=== PATIENT | female | born 1985 ===

== ENCOUNTER 2017-04-23 13:04 | Emergency (ER) | payer MEDICAID ==
[2017-04-23 13:04] VITALS: BMI 47.3
[2017-04-23 13:33] VITALS: BP 151/89; PULSE 90; RESP 16; TEMP 99; O2SAT 97
[2017-04-23] MEDS ORDERED: Naproxen 500 MG TAB PO ONE ×2 (14:46→15:07)
--- NOTE | 2017-04-23 15:58 | ED PDOC ---
HPI: General Adult Time Seen by Provider: 04/23/17 13:39 Chief Complaint (Nursing): Lower Extremity Problem/Injury History Per: Patient Additional Complaint(s): Pt. reports 4 day hx of atraumatic L ankle pain. Reports pain is localized to the inner portion for the ankle. States she does spend a lot of time on her feet at work. Denies numbness, tingling, trauma, calf pain, rash. Past Medical History Reviewed: Historical Data, Nursing Documentation, Vital Signs Vital Signs: Last Vital Signs Temp 99.0 F 04/23/17 13:29 Pulse 90 04/23/17 13:29 Resp 16 04/23/17 13:29 BP 151/89 H 04/23/17 13:29 Pulse Ox 97 04/23/17 15:58 - Medical History PMH: Asthma, Gall Bladder Disease - Surgical History Surgical History: Cholecystectomy - Family History Family History: States: Unknown Family Hx - Immunization History Hx Tetanus Toxoid Vaccination: No Hx Influenza Vaccination: No Hx Pneumococcal Vaccination: No - Home Medications Home Medications: Ambulatory Orders Medication Instructions Recorded Amoxicillin/Potassium Clav 500 mg PO Q8H #15 tab 07/17/15 [Augmentin 500 mg-125 mg] Acetaminophen [Acetaminophen Extra 2 tab PO Q6 PRN #24 tablet 10/08/15 Strength] Meloxicam [Mobic] 1 - 2 tab PO DAILY PRN #15 tab 04/23/17 - Allergies Allergies/Adverse Reactions: Allergies Allergy/AdvReac Type Severity Reaction Status Date / Time Seafood Allergy SWELLING Uncoded 11/01/15 14:39 Shrimp Allergy SWELLING Uncoded 11/01/15 14:39 Review of Systems ROS Statement: Except As Marked, All Systems Reviewed And Found Negative Physical Exam - Physical Exam Appears: Positive for: Well, Non-toxic, No Acute Distress Skin: Positive for: Normal Color, Warm. Negative for: Rash Pulses-Dorsalis Pedis (R): 2+ Extremity: Positive for: Normal ROM, Other (R ankle with mild tenderness and swelling on medial malleolus without deformity, warmth, or erythema) - ECG O2 Sat by Pulse Oximetry: 97 - Radiology X-Ray: Interpreted by Me (Ankle x-ray) X-Ray Interpretation: No Acute Disease Disposition - Clinical Impression Clinical Impression: Ankle pain - Patient ED Disposition Is Patient to be Admitted: No - Disposition Referrals: Podiatry Clinic [Outside] Disposition: Routine/Home Disposition Time: 15:56 Condition: STABLE Prescriptions: Meloxicam [Mobic] 1 - 2 tab PO DAILY PRN #15 tab PRN Reason: Pain Instructions: Arthralgia (ED) Forms: [facility] (Lao) Print Language: KINYARWANDA
--- NOTE | 2017-04-23 16:01 | RAD ---
PROCEDURE: Right Ankle Radiographs. HISTORY: pain COMPARISON: None FINDINGS: BONES: A well corticated ossification projects over the dorsal navicular bone -an accessory ossification center here versus a all old osseous avulsion are considerations. No suspect acute fracture here suggested. Bordering dorsal talar spurring noted. JOINTS: Normal. No osteoarthritis. Ankle mortise maintained. Talar dome intact SOFT TISSUES: Possible joint effusion OTHER FINDINGS: None. IMPRESSION: No acute fracture or lytic lesions. . Dorsal rayna navicular accessory ossification center versus old osseous avulsion. Possible joint effusion.
== END 2017-04-23 16:15 | disposition home or self-care (01) ==
LOC: H.ER 13:04
DX: M25.572 Pain in left ankle and joints of left foot (principal); J45.909 Unspecified asthma, uncomplicated

== ENCOUNTER 2017-09-27 11:56 | Emergency (ER) | payer MEDICAID ==
[2017-09-27 12:05] VITALS: BP 120/80; PULSE 83; O2SAT 99
[2017-09-27 12:06] VITALS: BMI 45.3
[2017-09-27] MEDS ORDERED: Cephalexin Susp 250 MG/5 ML PO STA (12:22)
--- NOTE | 2017-09-27 13:16 | ED PDOC ---
HPI: Wound Care - HPI Time Seen by Provider: 09/27/17 12:14 Chief Complaint (Nursing): Wound Check Chief Complaint (Provider): Wound Check s/p gastric sleeve History Per: Patient Exam Limitations: no limitations Onset/Duration Of Symptoms: Days Current Symptoms Are (Timing): Still Present Quality Of Symptoms: Painful, Other (redness) Additional Complaint(s): 31-year-old female presents to ED for wound evaluation s/p gastric sleeve on performed by Dr. Gómez. Patient states she was supposed to follow up in office this past , but did not have ride to get to her appointment. Patient reports increased redness and pain surrounding two of the incision sites for the past 2-3 days. When she called the doctor's office, she was told to go to ER for evaluation. Patient states she uses Percocet as prescribed by the surgeon as needed for pain, but denies taking any today. Denies fever, chills, drainage from the incision sites. Denies any other physical complaints at this time. LMP August 23. PMD: Xavi Camacho Past Medical History Reviewed: Historical Data, Nursing Documentation, Vital Signs Vital Signs: Last Vital Signs Temp 98.3 F 09/27/17 12:04 Pulse 83 09/27/17 12:04 Resp BP 120/80 09/27/17 12:04 Pulse Ox 99 09/27/17 12:04 - Medical History PMH: Asthma, Gall Bladder Disease - Surgical History Surgical History: Cholecystectomy Other surgeries: gastric sleeve - Family History Family History: States: Unknown Family Hx - Social History Current smoker - smoking cessation education provided: No Alcohol: None Drugs: Denies - Immunization History Hx Tetanus Toxoid Vaccination: Yes - Home Medications Home Medications: Ambulatory Orders Medication Instructions Recorded Amoxicillin/Potassium Clav 500 mg PO Q8H #15 tab 07/17/15 [Augmentin 500 mg-125 mg] Acetaminophen [Acetaminophen Extra 2 tab PO Q6 PRN #24 tablet 10/08/15 Strength] Meloxicam [Mobic] 1 - 2 tab PO DAILY PRN #15 tab 04/23/17 Bacitracin OINT 1 applic TOP BID #1 tube 09/27/17 Cephalexin Susp [Keflex] 10 ml PO TID #300 ml 09/27/17 - Allergies Allergies/Adverse Reactions: Allergies Allergy/AdvReac Type Severity Reaction Status Date / Time Seafood Allergy SWELLING Uncoded 11/01/15 14:39 Shrimp Allergy SWELLING Uncoded 11/01/15 14:39 Review of Systems ROS Statement: Except As Marked, All Systems Reviewed And Found Negative Skin: Positive for: Other (Pain and redness as surgical sites) Physical Exam - Reviewed Nursing Documentation Reviewed: Yes Vital Signs Reviewed: Yes - Physical Exam Appears: Positive for: Well, Non-toxic, No Acute Distress Head Exam: Positive for: NORMOCEPHALIC Skin: Positive for: Warm, Dry Eye Exam: Positive for: EOMI, PERRL Neck: Positive for: Painless ROM, Supple Cardiovascular/Chest: Positive for: Regular Rate, Rhythm Respiratory: Positive for: Normal Breath Sounds Gastrointestinal/Abdominal: Positive for: Soft. Negative for: Distended Comments: 1cm healing surgical incisions x2 with gurmeet in place to the RUQ both with mild surrounding erythema (+) Tenderness (+) Mild Warmth (-) Swelling (-) Drainage Healing 1cm Surgical Incision to the umbilicus with gurmeet in place (-) Erythema (-) Tenderness (-) Drainage (-) Warmth 1cm Healing Surgical Incision x2 to the LUQ with gurmeet in place (-) Erythema (-) Drainage (-) Warmth (-) Tenderness - ECG O2 Sat by Pulse Oximetry: 99 (RA) Pulse Ox Interpretation: Normal Medical Decision Making Medical Decision Making: Time: 12:22 Clinical Impression: Infection of surgical site/wound check Plan: - ED Urine Test refused by patient - Keflex 500 mg PO 1340 On re-evaluation, patient offers no additional complaints. On exam, patient remains AAOx3, in no acute distress. Neck is supple, lungs CTA, cardiac RRR, abdomen is soft and non-distended, neuro exam shows no focal findings. Tolerating PO intake in ED. VSS, stable for discharge. Educated on wound care. Diagnostic results d/w the patient in great detail. Dx of surgical site infection, visit for wound check d/w the patient. Based on history, exam and diagnostic results plan will be for discharge and outpatient follow up with surgeon. Advised to follow up with primary care physician/surgeon in 1-2 days without fail. Advised to take medication as prescribed. Return to the emergency room at any time for any new or worsening symptoms. Patient states she fully agrees with and understands discharge instructions. States that she agrees with the plan and disposition. Verbalized and repeated discharge instructions and plan. I have given the patient opportunity to ask any additional questions. Scribe Attestation: Documented by Prashanth Loco, acting as a scribe for Laurita Rodriguez PA-C. Provider Scribe Attestation: All medical record entries made by the Scribe were at my direction and personally dictated by me. I have reviewed the chart and agree that the record accurately reflects my personal performance of the history, physical exam, medical decision making, and the department course for this patient. I have also personally directed, reviewed, and agree with the discharge instructions and disposition. Disposition - Clinical Impression Clinical Impression: Encounter for postoperative wound check, Surgical site infection - Patient ED Disposition Is Patient to be Admitted: No Counseled Patient/Family Regarding: Diagnosis, Need For Followup, Rx Given - Disposition Disposition: Routine/Home Disposition Time: 13:42 Condition: STABLE Additional Instructions: FOLLOW UP WITH YOUR SURGEON FOR WOUND CHECK WITHIN 1-2 DAYS. RETURN TO ED WITH ANY NEW OR WORSENING SYMPTOMS. TAKE ANTIBIOTICS UNTIL COMPLETE. KEEP SURGICAL SITES CLEAN AND DRY. Prescriptions: Bacitracin OINT 1 applic TOP BID #1 tube Cephalexin Susp [Keflex] 10 ml PO TID #300 ml Instructions: How to Prevent Surgical Site Infections, Surgical Wound (DC), Wound Care, Laceration Repair With Gurmeet (DC), Wound Infection Forms: [facility] (German) Print Language: PALAUAN - POA Present On Arrival: Surgical Site Infection
[2017-09-27 13:53] VITALS: TEMP 98
== END 2017-09-27 13:52 | disposition home or self-care (01) ==
LOC: H.ER 11:56
DX: T81.4XXA Infection following a procedure, initial encounter (principal); Z98.84 Bariatric surgery status

== ENCOUNTER 2018-02-09 10:08 | Emergency (ER) | payer MEDICAID ==
[2018-02-09 10:23] VITALS: BP 122/83; PULSE 81; RESP 16; TEMP 97; O2SAT 100
[2018-02-09 10:24] VITALS: BMI 36.7
--- NOTE | 2018-02-09 11:04 | ED PDOC ---
HPI: Female Pain Time Seen by Provider: 02/09/18 10:10 Chief Complaint (Nursing): Female Genitourinary Chief Complaint (Provider): Surpapubic pain, dysuria History Per: Patient History/Exam Limitations: no limitations Onset/Duration Of Symptoms: Days Current Symptoms Are (Timing): Still Present Additional Complaint(s): 32 yo (positive test in ER) presents with suprapubic pain and dysuria. PT denies vaginal bleeding. Pain 7/10, central, dull and crampy. Pt denies N/V, back pain. Past Medical History Reviewed: Historical Data, Nursing Documentation, Vital Signs Vital Signs: Last Vital Signs Temp 97 F L 02/09/18 10:22 Pulse 81 02/09/18 10:22 Resp 16 02/09/18 10:22 BP 122/83 02/09/18 10:22 Pulse Ox 100 02/09/18 10:22 - Medical History PMH: Asthma, Gall Bladder Disease - Surgical History Surgical History: Cholecystectomy - Family History Family History: States: Unknown Family Hx - Immunization History Hx Tetanus Toxoid Vaccination: Yes Hx Influenza Vaccination: No Hx Pneumococcal Vaccination: No - Home Medications Home Medications: Ambulatory Orders Medication Instructions Recorded Amoxicillin/Potassium Clav 500 mg PO Q8H #15 tab 07/17/15 [Augmentin 500 mg-125 mg] Acetaminophen [Acetaminophen Extra 2 tab PO Q6 PRN #24 tablet 10/08/15 Strength] Meloxicam [Mobic] 1 - 2 tab PO DAILY PRN #15 tab 04/23/17 Bacitracin OINT 1 applic TOP BID #1 tube 09/27/17 Cephalexin Susp [Keflex] 10 ml PO TID #300 ml 09/27/17 Nitrofurantoin Macrocrystals 100 mg PO BID #10 cap 02/09/18 [Macrobid] - Allergies Allergies/Adverse Reactions: Allergies Allergy/AdvReac Type Severity Reaction Status Date / Time Seafood Allergy SWELLING Uncoded 11/01/15 14:39 Shrimp Allergy SWELLING Uncoded 11/01/15 14:39 Review of Systems ROS Statement: Except As Marked, All Systems Reviewed And Found Negative Constitutional: Negative for: Fever, Chills Genitourinary Female: Positive for: Dysuria, Pelvic Pain. Negative for: Frequency, Vaginal Discharge, Vaginal Bleeding Physical Exam - Reviewed Nursing Documentation Reviewed: Yes Vital Signs Reviewed: Yes - Physical Exam Appears: Positive for: Well, Non-toxic, No Acute Distress Head Exam: Positive for: ATRAUMATIC, NORMAL INSPECTION, NORMOCEPHALIC Skin: Positive for: Normal Color, Warm, DRY Eye Exam: Positive for: Normal appearance ENT: Positive for: Normal ENT Inspection Neck: Positive for: Normal, Painless ROM Cardiovascular/Chest: Positive for: Regular Rate, Rhythm Respiratory: Positive for: Normal Breath Sounds. Negative for: Accessory Muscle Use, Respiratory Distress Gastrointestinal/Abdominal: Positive for: Normal Exam, Soft. Negative for: Tenderness, Guarding, Rebound Back: Positive for: Normal Inspection Extremity: Positive for: Normal ROM Neurologic/Psych: Positive for: Alert, Oriented - ECG O2 Sat by Pulse Oximetry: 100 Pulse Ox Interpretation: Normal Disposition - Clinical Impression Clinical Impression: UTI (urinary tract infection), - Patient ED Disposition Is Patient to be Admitted: No Counseled Patient/Family Regarding: Diagnosis, Need For Followup, Rx Given - Disposition Referrals: [facility] [Outside] Disposition: Routine/Home Disposition Time: 13:25 Condition: GOOD Prescriptions: Nitrofurantoin Macrocrystals [Macrobid] 100 mg PO BID #10 cap Instructions: Urinary Tract Infections in Adults Forms: [facility] (Arabic)
[2018-02-09 11:23] LABS: SQUAMOUS EPITHIAL 5 /hpf (0-5); URINE BACTERIA OCC (<OCC); URINE BILIRUBIN NEGATIVE (NEGATIVE); URINE BLOOD NEGATIVE (NEGATIVE); URINE CALCIUM OXALATE CRYSTALS OCC /hpf (<OCC); URINE CLARITY CLOUDY (Clear); URINE COLOR AMBER (YELLOW); URINE GLUCOSE (UA) NEG (Normal); URINE LEUKOCYTE ESTERASE NEG Leu/uL (Negative); URINE PROTEIN 30 mg/dL (NEGATIVE)
--- NOTE | 2018-02-09 13:09 | US ---
Date of service: 02/09/2018 PROCEDURE: First trimester ultrasound HISTORY: suprapubic pain, COMPARISON: None TECHNIQUE: Standard protocol for this study/examination. FINDINGS: LMP: 12/20/2017 Prior examinations from the current : None TECHNIQUE: Real-time 2D imaging, duplex and color Doppler. FINDINGS: Cardiac activity: Present Rate: 165 BPM Measurements: [place] rump length: 4.00 cm Gestational age based on CRL 10 weeks 6 days Gestational age 11 weeks based on gestational sac measurement 5.20 cm Gestational age derived from LMP: 7 weeks 2 days YOHAN based on LMP: 09/26/2018 YOHAN based on biometry: 08/31/2018 Gestational concordance approximately 4 weeks discordance. Yolk sac identified Cervix: No Cervical abnormalities: Negative examination for cervical dilatation or effacement. Closed cervix measuring 4.55 cm Subchorionic hemorrhage: None UTERUS: 7 x 7.1 x 11.4 cm. ADNEXA: Right: Not visible. Left: Not visible. Fluid in the cul-de-sac: None IMPRESSION: Eleven weeks live intrauterine gestation.
== END 2018-02-09 13:30 | disposition home or self-care (01) ==
LOC: H.ER 10:08
DX: O23.41 Unspecified infection of urinary tract in pregnancy, first trimester (principal); O99.511 Diseases of the respiratory system complicating pregnancy, first trimester; J45.909 Unspecified asthma, uncomplicated; Z3A.11 11 weeks gestation of pregnancy

== ENCOUNTER 2018-07-10 16:43 | Emergency (ER) | payer MEDICAID ==
[2018-07-10 17:33] VITALS: BMI 36.9
[2018-07-10] MEDS ORDERED: Lactated Ringer's 1,000 ML IV SCH (17:45)
[2018-07-10 18:08] LABS: HEMOGLOBIN 10.7 g/dL (12.0-16.0); MEAN CELL VOLUME 86.8 fl (81.0-99.0); MEAN CORPUSCULAR HGB CONC 32.2 g/dL (33.0-37.0); RBC 3.84 Mil/uL (3.80-5.20); RED CELL DISTRIBUTION WIDTH 13.9 % (11.5-14.5); WHITE BLOOD COUNT 7.7 K/uL (4.8-10.8)
[2018-07-10 18:21] LABS: ALB/GLOB RATIO 1.1 (1.0-2.1); ALBUMIN 3.4 g/dL (3.5-5.0); ALT/SGPT 13 U/L (9-52); AST/SGOT 15 U/L (14-36); BLOOD UREA NITROGEN 7 mg/dl (7-17); CALCIUM 8.5 mg/dL (8.4-10.2); GFR NON-AFRICAN AMERICAN > 60; SQUAMOUS EPITHIAL 9 /hpf (0-5); URINE BACTERIA RARE (<OCC); URINE BILIRUBIN NEGATIVE (NEGATIVE); URINE BLOOD NEGATIVE (NEGATIVE); URINE CLARITY CLOUDY (Clear); URINE COLOR AMBER (YELLOW); URINE GLUCOSE (UA) NEG (NEGATIVE); URINE LEUKOCYTE ESTERASE NEG Leu/uL (Negative); URINE PROTEIN 30 mg/dL (NEGATIVE)
--- NOTE | 2018-07-10 20:10 | OBHP ---
Datetime: 07/10/2018 18:08 IP Adm Impression: , intrauterine IP Admit Plan: Observation/Evaluation; Discharge home Admit Comment, IP Provider: A 32 yo F with due date of 09/03/18 by US with PSH of Gastric sl eeve done in August 2017, present to [facility] Due to abdominal pain. Patient report pain started yesterday at 9am, pain located in upper abdomen, pulsating 8 out of 10 in severity, Pt report having some nause a and vomiting today in morning but does not believe that its due to pain. Pt state for past 2 days s he have been eating poorly, but otherwise patient denies any vaginal discharge, bleeding, or noting w atergush. Pt report good movement. Pt denies fever, chills, chest pain, sob, diarrhea, constipation, dysuria or polyuria. PCP: Sean Kee (Kristy) Allergy Shellfish PMH none OBGYN: 1 Prev C-sec with premature of 33 due to ROM PSH Gastric sleve, Cholesystectomy PFH: none Social Denies smoke drink or drug use 18:00 Assessment and plan A 32 yo F with due date of 09/03/18 by US with PSH of Gastric sleeve done in August 2017, pr esent to [facility] Due to abdominal pain. Monitor vital No contraction upon tocometer monitor reassuring + tenderness upon palpation of abd Cervix closed Will start IV fluid 1L at 999 UA and UC sent f/u result CBC/CMP sent f/u result Tasneem PGY1 OB Hospitalist Addendum: 32 yo at 32+1 wks s/p gastric sleeve last year, c/o abdominal brittany n that started yesterday, describes it as pulsating. Cervix closed/ thick and high. CBC and CMP nl. Pt given 1 liter LR for hydration. No contractions noted. Pt discharged home and will f/u w/ a "s pecialist" for her abdominal pain. Rec that she f/u w/ GI or her bariatric surgeon. Pt was given pr ecuations by Dr. Sean Baxter, PGY1. Pt discharged home w/ precautions. (ES) Pelvic Type - PN: Adequate Extremities - PN: Normal Abdomen - PN: Normal Back - PN: Normal Breast - PN: Not Done Lungs - PN: Normal Heart - PN: Normal Thyroid - PN: Normal Neurologic - PN: Normal HEENT - PN: Normal General - PN: Normal FHR - Baseline A Provider: 145 Comments, ACOG Physical Exam: Heart s1, s2 no extra heart sound lung clear Abdomen tender upon palpatin of umbilical Pelvic: Cervix closed, White discharge noted. Gestation - Est Wks by US: 32.1 Pool Provider: Negative EGA AdmitDate IP: 32.1 Vital Signs Provider: Reviewed; Within Normal Limits IP Chief Complaint: Maternal discomfort NICHD Variability Prov Fetus A: Moderate 6-25bpm NICHD Accel Fetus A IP Provider: [id number] FHR Category Provider Fetus A: Category I NICHD Decel Fetus A IP Provider: None Dilatation, Provider: 0 Genitourinary Exam: Normal DTRs - PN: Not Done
--- NOTE | 2018-07-10 20:11 | OBDCSUM ---
Datetime: 07/10/2018 19:46 Discharged to, Provider: Home Follow up at, Provider: MARIEL Disch Instr Activity: Normal activity Disch Instr Diet: Regular Discharge Time: 07/10/2018 19:46 Follow up in weeks, Provider: 07/15/2018 Disch Referrals: None Discharge Diagnosis Prov Other: Abdominal pain at 32+1 wks
[2018-07-11 01:26] VITALS: BP 108/62; PULSE 69
--- NOTE | 2018-07-13 11:32 | OBHP ---
Datetime: 07/10/2018 18:08 Admit Comment, IP Provider: A 32 yo F with due date of 09/03/18 by US with PSH of Gastric sl eeve done in August 2017, present to [facility] Due to abdominal pain. Patient report pain started yesterday at 9am, pain located in upper abdomen, pulsating 8 out of 10 in severity, Pt report having some nause a and vomiting today in morning but does not believe that its due to pain. Pt state for past 2 days s he have been eating poorly, but otherwise patient denies any vaginal discharge, bleeding, or noting w atergush. Pt report good movement. Pt denies fever, chills, chest pain, sob, diarrhea, constipation, dysuria or polyuria. PCP: Sean Brennan) Allergy Shellfish PMH none OBGYN: 1 Prev C-sec with premature of 33 due to ROM PSH Gastric sleve, Cholesystectomy PFH: none Social Denies smoke drink or drug use 18:00 Assessment and plan A 32 yo F with due date of 09/03/18 by US with PSH of Gastric sleeve done in August 2017, pr esent to [facility] Due to abdominal pain. Monitor vital No contraction upon tocometer monitor reassuring + tenderness upon palpation of abd Cervix closed Will start IV fluid 1L at 999 UA and UC sent f/u result CBC/CMP sent f/u result Tasneem PGY1 OB Hospitalist Addendum: 32 yo at 32+1 wks s/p gastric sleeve last year, c/o abdominal brittany n that started yesterday, describes it as pulsating. Cervix closed/ thick and high. CBC and CMP nl. Pt given 1 liter LR for hydration. FHT reactive. No contractions noted. Pt discharged home and w ill f/u w/ a "specialist" for her abdominal pain. Rec that she f/u w/ GI or her bariatric surgeon. Pt was given precuations by Dr. Sean Baxter, PGY1. Pt discharged home w/ precautions. (ES)
== END 2018-07-10 19:50 | disposition home or self-care (01) ==
LOC: H.EROB2 16:43
DX: O26.93 Pregnancy related conditions, unspecified, third trimester (principal); R10.2 Pelvic and perineal pain; O99.843 Bariatric surgery status complicating pregnancy, third trimester; O21.0 Mild hyperemesis gravidarum; Z3A.32 32 weeks gestation of pregnancy
CPT/HCPCS: 80053; 81003; 85027; 87086; 99283; J7120